=== PATIENT | female | born 1970 | race Asian ===

== ENCOUNTER 2016-04-28 09:58 | Emergency (ER) | payer OTHER ==
[~2016-04-28] VITALS: Ht 154.9 cm; Wt 59.2 kg
[~2016-04-28 09:58] MED LIST: ADVAIR 250/501 DISK IH; ADVIL,NUPRIN,M200 MG PO; ADVIL200 MG PO; ATIVAN0.5 MG PO; CIPRO500 MG PO; FLOMAX0.4 MG PO; FLUCONAZOLE150 MG PO; HYDROCODON-ACE1 EAC7 PO; PEN-VEE K,VEET500 MG PO; PERCOCET 5/31 TABLET PO; POTASSIUM CHLO20 MEQ PO; SULFAMETHOXAZO1 EAC4 PO; TAMSULOSIN HCL0.4 MG PO; TYLENOL REGULA325 MG PO
[2016-04-28 11:01] LABS: ADD MIUA? YES; BILIRUBIN NEGATIVE; BLOOD MODERATE; COLOR LT YELLOW ((YELLOW)); GLUCOSE (STRIP) NEGATIVE; KETONES NEGATIVE; LEUKOCYTES LARGE; NITRITE NEGATIVE; PROTEIN (STRIP) TRACE; SPECIFIC GRAVITY 1.017 (1.000-1.030); UROBILINOGEN 0.2 MG/DL (0.2-1.0)
[2016-04-28 11:03] LABS: HEMATOCRIT 39.6 % (36.0-46.0); MCH 30.6 PG (29.0-34.0); MCHC 33.8 G/DL (30.0-36.0); MCV 90.4 FL (83-99); PLATELET COUNT 360 K/uL (156-360); RBC DIS.WIDTH-CV 12.6 % (11.8-14.6); RBC DIS.WIDTH-SD 40.9 % (39-53); RED BLOOD COUNT 4.38 M/uL (3.80-5.20)
[2016-04-28 11:10] LABS: CHLORIDE 106 mEq/L (99-109); POTASSIUM 3.5 mEq/L (3.7-5.4); SODIUM 141 mEq/L (136-147)
[2016-04-28 11:13] LABS: GLUCOSE 99 mg/dL (70-99)
[2016-04-28 11:14] LABS: ANION GAP 9 MEQ/L (2-14); TOTAL BILIRUBIN 0.8 mg/dL (0.0-1.0)
[2016-04-28 11:15] LABS: EPITHELIAL CELLS 1+; MUCUS NONE SEEN; WHITE BLOOD CELLS TNTC /HPF (0-5)
[2016-04-28 11:16] LABS: ALKALINE PHOSPHATASE 56 IU/L (3-129); GFR ESTIMATE (CALCULATED) > 59 mL/min/
[2016-04-28 11:16] LABS: BACTERIA 1+; CASTS NONE SEEN /LPF; CRYSTALS NONE SEEN; UCUL ADDED? YES
[2016-04-28 11:17] LABS: UREA NITROGEN (BUN) 17 mg/dL (9-23)
[2016-04-28 11:20] LABS: LIPASE 21 U/L (1.0-51.0)
[2016-04-28 11:26] LABS: QUANTITATIVE HCG < 4.0 MIU/ML
[2016-04-28] MEDS ORDERED: LORTAB 5-325 M1 EACH PO (13:15)
[2016-04-28] MEDS ORDERED: KEFLEX500 MG PO (13:17)
[2016-04-28 13:41] VITALS: BP 118/74
[2016-05-01] MEDS ORDERED: FLOMAX0.4 MG PO (17:06)
[2016-05-01] MEDS ORDERED: KEFLEX250 MG PO (17:07)
== END 2016-04-28 13:43 | disposition home or self-care (01) ==
LOC: EME 09:58
DX: N39.0 Urinary tract infection, site not specified (principal); N13.2 Hydronephrosis with renal and ureteral calculous obstruction; Z87.442 Personal history of urinary calculi; I10 Essential (primary) hypertension
CPT/HCPCS: 74020; 76770; 80053; 81003; 83690; 84702; 85027; 87077; 87086; 87186; 99281; 99283; J1885

== ENCOUNTER → 2016-05-01 | Outpatient (CLI) | payer OTHER ==
[~2016-05-01] MED LIST changes: +CEPHALEXIN500 MG PO; +KEFLEX250 MG PO; +KEFLEX500 MG PO; +LORTAB 5-325 M1 EACH PO
== END | disposition home or self-care (01) ==
LOC: RAD 12:13
DX: N20.1 Calculus of ureter (principal)
CPT/HCPCS: 74000

== ENCOUNTER 2016-05-04 10:03 | Day surgery (SDC) | payer OTHER ==
[~2016-05-04] VITALS: Ht 154.9 cm; Wt 57.1 kg
[~2016-05-04 10:03] MED LIST changes: -CEPHALEXIN500 MG PO
[2016-05-04] MEDS ORDERED: CEPHALEXIN500 MG PO (10:44)
[2016-05-04 10:52] VITALS: BP 131/84
[2016-05-04 14:30] VITALS: BP 130/80
[2016-05-04 15:25] VITALS: BP 126/76
== END 2016-05-04 15:47 | disposition home or self-care (01) ==
LOC: SDC 10:03
PROVIDERS: Urology
DX: N20.0 Calculus of kidney (principal); Z87.442 Personal history of urinary calculi; I10 Essential (primary) hypertension
CPT/HCPCS: 74000; 76000; 82365 90; C1769; J0690; J1100; J1885; J2405; J3010

== ENCOUNTER → 2016-05-25 | Outpatient (CLI) | payer OTHER ==
[~2016-05-25] MED LIST changes: +CEPHALEXIN500 MG PO
== END | disposition home or self-care (01) ==
LOC: RAD 08:23
DX: N20.1 Calculus of ureter (principal); N20.0 Calculus of kidney; Z98.890 Other specified postprocedural states
CPT/HCPCS: 74000

== ENCOUNTER → 2017-04-26 | Outpatient (CLI) | payer OTHER ==
[~2017-04-26] VITALS: Ht 152.4 cm; Wt 58.3 kg
[~2017-04-26] MED LIST changes: +PRILOSEC20 MG PO
== END | disposition home or self-care (01) ==
LOC: AMB 03-22 13:30
DX: K29.70 Gastritis, unspecified, without bleeding (principal); K21.9 Gastro-esophageal reflux disease without esophagitis; R73.09 Other abnormal glucose; Z82.49 Family history of ischemic heart disease and other diseases of the circulatory system; Z88.5 Allergy status to narcotic agent
CPT/HCPCS: 88305; 88342 TC; J2250; J3010

== ENCOUNTER 2017-10-30 14:26 | Inpatient (IN) | payer OTHER ==
[~2017-10-30] VITALS: Ht 160 cm; Wt 58.6 kg
[2017-10-30 15:13] LABS: HEMATOCRIT 42.2 % (36.0-46.0); HEMOGLOBIN 14.6 G/DL (11.9-15.5); MCH 31.1 PG (29.0-34.0); MCHC 34.6 G/DL (30.0-36.0); MCV 89.8 FL (83-99); PLATELET COUNT 314 K/uL (156-360); RBC DIS.WIDTH-CV 12.6 % (11.8-14.6); RBC DIS.WIDTH-SD 41.9 % (39-53); WHITE BLOOD COUNT 17.4 K/uL (4.1-10.2)
[2017-10-30 15:13] LABS: APPEARANCE CLOUDY ((CLEAR)); BILIRUBIN NEGATIVE; BLOOD MODERATE; COLOR YELLOW ((YELLOW)); GLUCOSE (STRIP) NEGATIVE; KETONES NEGATIVE; LEUKOCYTES LARGE; NITRITE POSITIVE; PROTEIN (STRIP) 30; SPECIFIC GRAVITY 1.015 (1.000-1.030); UROBILINOGEN 0.2 MG/DL (0.2-1.0)
[2017-10-30 15:29] LABS: CHLORIDE 100 mEq/L (99-109); POTASSIUM 2.9 mEq/L (3.7-5.4); SODIUM 136 mEq/L (136-147)
[2017-10-30 15:31] LABS: GLUCOSE 172 mg/dL (70-99)
[2017-10-30 15:35] LABS: CREATININE 1.2 mg/dL (0.6-1.3); GFR ESTIMATE (CALCULATED) 51 mL/min/; UREA NITROGEN (BUN) 19 mg/dL (9-23)
[2017-10-30 16:08] LABS: BACTERIA 3+ /HPF; EPITHELIAL CELLS 1+ /HPF; MUCUS NONE SEEN /LPF; RED BLOOD CELLS 0-5 /HPF (0-5); UCUL ADDED? YES; WHITE BLOOD CELLS TNTC /HPF (0-5)
[2017-10-30 18:41] LABS: TROP-I INTERPRETATION NEGATIVE; TROPONIN-I < 0.01 ng/mL (0.0-0.30)
[2017-10-30] MEDS ORDERED: TYLENOL EXTRA500 MG PO (20:27)
[2017-10-30] MEDS ORDERED: ADVIL200 MG PO (20:29)
[2017-10-30] MEDS ORDERED: [UNRECOGNIZED DRUG - CODE] PO (20:35)
[2017-10-30 22:19] VITALS: BP 133/88
[2017-10-31 03:50] VITALS: BP 111/71
[2017-10-31 05:31] LABS: HEMATOCRIT 38.2 % (36.0-46.0); HEMOGLOBIN 12.9 G/DL (11.9-15.5); MCH 30.8 PG (29.0-34.0); MCHC 33.8 G/DL (30.0-36.0); MCV 91.2 FL (83-99); PLATELET COUNT 276 K/uL (156-360); RBC DIS.WIDTH-SD 43.3 % (39-53); RED BLOOD COUNT 4.19 M/uL (3.80-5.20); WHITE BLOOD COUNT 14.2 K/uL (4.1-10.2)
[2017-10-31 05:57] LABS: CHLORIDE 105 MEQ/L (99-109); GFR ESTIMATE (CALCULATED) > 59 mL/min/; POTASSIUM 3.2 MEQ/L (3.7-5.4); SODIUM 140 MEQ/L (136-147); UREA NITROGEN (BUN) 14 mg/dL (9-23)
[2017-10-31 06:17] LABS: GLUCOSE 113 mg/dL (70-99)
[2017-10-31 07:37] VITALS: BP 143/79
[2017-10-31 11:43] VITALS: BP 135/85
[2017-10-31 15:43] VITALS: BP 136/82
[2017-10-31 20:15] VITALS: BP 107/66
[2017-11-01 00:22] VITALS: BP 108/69
[2017-11-01 04:00] VITALS: BP 121/74
[2017-11-01 05:32] LABS: BASOPHIL (%) 0.4 % (0-1); EOSINOPHIL (%) 1.3 % (0-5); EOSINOPHIL COUNT 0.1 K/uL (0-0.3); HEMATOCRIT 34.2 % (36.0-46.0); HEMOGLOBIN 11.3 G/DL (11.9-15.5); IMMATURE GRANULOCYTE (%) 0.3 % (0.0-0.7); LYMPHOCYTE (%) 18.5 % (15-42); LYMPHOCYTE COUNT 1.8 K/uL (1.0-2.8); MCH 30.7 PG (29.0-34.0); MCV 92.9 FL (83-99); MONOCYTE (%) 13.1 % (3-12); MONOCYTE COUNT 1.3 K/uL (0-0.8); NEUTROPHIL (%) 66.4 % (45-76); NEUTROPHIL COUNT 6.3 K/uL (1.8-6.4); PLATELET COUNT 267 K/uL (156-360); RBC DIS.WIDTH-CV 12.9 % (11.8-14.6); RBC DIS.WIDTH-SD 44.4 % (39-53); RED BLOOD COUNT 3.68 M/uL (3.80-5.20); WHITE BLOOD COUNT 9.5 K/uL (4.1-10.2)
[2017-11-01 06:01] LABS: CHLORIDE 110 MEQ/L (99-109); GFR ESTIMATE (CALCULATED) > 59 mL/min/; GLUCOSE 122 mg/dL (70-99); MAGNESIUM 1.9 mg/dl (1.3-2.7); POTASSIUM 3.5 MEQ/L (3.7-5.4); SODIUM 144 MEQ/L (136-147); UREA NITROGEN (BUN) 14 mg/dL (9-23)
[2017-11-01 07:38] VITALS: BP 136/76
[2017-11-01 12:04] VITALS: BP 150/92
[2017-11-01 12:23] LABS: HEMOGLOBIN A1c (GLYCOHEMOGLOB) 6.1 % (Below 5.7)
[2017-11-01 19:39] VITALS: BP 158/92
[2017-11-01 23:38] VITALS: BP 163/91
[2017-11-02 04:09] VITALS: BP 140/90
[2017-11-02 06:08] LABS: BASOPHIL (%) 0.5 % (0-1); EOSINOPHIL (%) 2.5 % (0-5); EOSINOPHIL COUNT 0.2 K/uL (0-0.3); HEMATOCRIT 38.4 % (36.0-46.0); HEMOGLOBIN 12.8 G/DL (11.9-15.5); IMMATURE GRANULOCYTE (%) 0.4 % (0.0-0.7); LYMPHOCYTE COUNT 2.1 K/uL (1.0-2.8); MCH 30.5 PG (29.0-34.0); MCHC 33.3 G/DL (30.0-36.0); MCV 91.4 FL (83-99); MONOCYTE (%) 13.3 % (3-12); MONOCYTE COUNT 1.1 K/uL (0-0.8); NEUTROPHIL (%) 57.3 % (45-76); NEUTROPHIL COUNT 4.6 K/uL (1.8-6.4); PLATELET COUNT 340 K/uL (156-360); RBC DIS.WIDTH-CV 12.6 % (11.8-14.6); RBC DIS.WIDTH-SD 42.5 % (39-53)
[2017-11-02 06:28] LABS: CHLORIDE 104 MEQ/L (99-109); GFR ESTIMATE (CALCULATED) > 59 mL/min/; GLUCOSE 96 mg/dL (70-99); POTASSIUM 3.3 MEQ/L (3.7-5.4); SODIUM 143 MEQ/L (136-147); UREA NITROGEN (BUN) 13 mg/dL (9-23)
[2017-11-02 07:15] VITALS: BP 141/92
[2017-11-02] MEDS ORDERED: TAMSULOSIN HCL0.4 MG PO (11:02)
[2017-11-02] MEDS ORDERED: DITROPAN5 MG PO (11:02)
[2017-11-02] MEDS ORDERED: CIPRO500 MG PO (11:08)
[2017-11-02 12:07] VITALS: BP 147/82
== END 2017-11-02 14:32 | disposition home or self-care (01) | DRG 872 ==
LOC: RME 14:26 → EME 14:26 → 5SOUTH 20:24 → EDOF 20:24 → CANRESERV 20:25 → ENRESERV 20:25 → 5SOUTH 21:53
PROVIDERS: Hospitalist; Physician Assistant
PROC: 0T788DZ Dilation of Bilateral Ureters with Intraluminal Device, Via Natural or Artificial Opening Endoscopic (ICD-10-PCS; principal; 2017-10-31)
PROC: BT141ZZ Fluoroscopy of Kidneys, Ureters and Bladder using Low Osmolar Contrast (ICD-10-PCS; principal; 2017-10-31)
DX: A41.50 Gram-negative sepsis, unspecified (principal); N13.6 Pyonephrosis; B96.1 Klebsiella pneumoniae [K. pneumoniae] as the cause of diseases classified elsewhere; E87.6 Hypokalemia; I10 Essential (primary) hypertension; K21.9 Gastro-esophageal reflux disease without esophagitis; J30.2 Other seasonal allergic rhinitis
CPT/HCPCS: 74177; 74420; 80048; 81003; 83036; 83605; 83735; 84484; 85025; 85027; 87040; 87077; 87086; 87186; 87801; 93005; 99281; 99284; C2625; J0696; J1644; J1885; J2250; J2405; J2543; J3010; J3480; J7030; J7050; J7120

== ENCOUNTER → 2017-11-17 | Outpatient (CLI) | payer SELFPAY ==
[~2017-11-17] MED LIST changes: +DITROPAN5 MG PO; +TYLENOL EXTRA500 MG PO; +[UNRECOGNIZED DRUG - CODE] PO
== END | disposition home or self-care (01) ==
LOC: RAD 15:32
DX: N20.0 Calculus of kidney (principal); Z96.0 Presence of urogenital implants
CPT/HCPCS: 74018

== ENCOUNTER 2017-12-06 10:11 | Emergency (ER) | payer SELFPAY ==
[~2017-12-06] VITALS: Ht 149.9 cm; Wt 58.7 kg
[2017-12-06 13:09] VITALS: BP 151/89
== END 2017-12-06 13:10 | disposition home or self-care (01) ==
LOC: EME 10:11
DX: Z00.00 Encounter for general adult medical examination without abnormal findings (principal); Z96.0 Presence of urogenital implants; I10 Essential (primary) hypertension; Z87.442 Personal history of urinary calculi; Z90.49 Acquired absence of other specified parts of digestive tract; Z88.5 Allergy status to narcotic agent
CPT/HCPCS: 99281; 99284

== ENCOUNTER 2017-12-13 18:52 | Inpatient (IN) | payer OTHER ==
[~2017-12-13] VITALS: Ht 149.9 cm; Wt 61.4 kg
[2017-12-13 19:16] LABS: APPEARANCE SL.HAZY ((CLEAR)); BILIRUBIN NEGATIVE; BLOOD LARGE; COLOR YELLOW ((YELLOW)); GLUCOSE (STRIP) 50; KETONES NEGATIVE; LEUKOCYTES LARGE; NITRITE POSITIVE; PROTEIN (STRIP) 100; SPECIFIC GRAVITY 1.008 (1.000-1.030); UROBILINOGEN 0.2 MG/DL (0.2-1.0)
[2017-12-13 19:22] LABS: HEMOGLOBIN 13.2 G/DL (11.9-15.5); MCH 31.4 PG (29.0-34.0); MCHC 34.7 G/DL (30.0-36.0); MCV 90.3 FL (83-99); PLATELET COUNT 321 K/uL (156-360); RBC DIS.WIDTH-CV 12.6 % (11.8-14.6); RBC DIS.WIDTH-SD 41.9 % (39-53); RED BLOOD COUNT 4.21 M/uL (3.80-5.20); WHITE BLOOD COUNT 12.3 K/uL (4.1-10.2)
[2017-12-13 19:39] LABS: BACTERIA 1+ /HPF; EPITHELIAL CELLS 1+ /HPF; MUCUS NONE SEEN /LPF
[2017-12-13 19:40] LABS: WHITE BLOOD CELLS 30-40 /HPF (0-5)
[2017-12-13 19:41] LABS: ALBUMIN 3.9 g/dL (3.2-4.8); CHLORIDE 101 mEq/L (99-109); POTASSIUM 2.6 mEq/L (3.7-5.4); SODIUM 137 mEq/L (136-147)
[2017-12-13 19:41] LABS: RED BLOOD CELLS 40-50 /HPF (0-5); UCUL ADDED? YES
[2017-12-13 19:44] LABS: GLUCOSE 235 mg/dL (70-99); TOTAL PROTEIN 7.2 g/dL (6.4-8.3)
[2017-12-13 19:46] LABS: TOTAL BILIRUBIN 0.7 mg/dL (0.0-1.0)
[2017-12-13 19:47] LABS: ALKALINE PHOSPHATASE 68 IU/L (3-129)
[2017-12-13 19:48] LABS: CREATININE 1.2 mg/dL (0.6-1.3); GFR ESTIMATE (CALCULATED) 51 mL/min/
[2017-12-13 19:49] LABS: AST (GOT) 17 IU/L (2-34); UREA NITROGEN (BUN) 15 mg/dL (9-23)
[2017-12-13 19:50] LABS: ALT (GPT) 21 IU/L (3-49)
[2017-12-13 19:56] LABS: QUANTITATIVE HCG < 4.0 MIU/ML
[2017-12-13 20:54] LABS: LIPASE 19 U/L (1.0-51.0)
[2017-12-13 23:02] LABS: CHLORIDE 109 mEq/L (99-109); POTASSIUM 3.1 mEq/L (3.7-5.4); SODIUM 142 mEq/L (136-147)
[2017-12-13 23:04] LABS: GLUCOSE 166 mg/dL (70-99)
[2017-12-13 23:07] LABS: GFR ESTIMATE (CALCULATED) > 59 mL/min/
[2017-12-13 23:08] LABS: UREA NITROGEN (BUN) 14 mg/dL (9-23)
[2017-12-14 01:34] VITALS: BP 141/99
[2017-12-14 03:41] VITALS: BP 129/72
[2017-12-14 06:36] LABS: BASOPHIL (%) 0.2 % (0-1); EOSINOPHIL (%) 0.6 % (0-5); EOSINOPHIL COUNT 0.1 K/uL (0-0.3); HEMATOCRIT 37.4 % (36.0-46.0); IMMATURE GRANULOCYTE (%) 0.3 % (0.0-0.7); LYMPHOCYTE (%) 10.6 % (15-42); LYMPHOCYTE COUNT 1.3 K/uL (1.0-2.8); MCH 31.7 PG (29.0-34.0); MCHC 34.8 G/DL (30.0-36.0); MCV 91.2 FL (83-99); MONOCYTE (%) 13.6 % (3-12); MONOCYTE COUNT 1.7 K/uL (0-0.8); NEUTROPHIL (%) 74.7 % (45-76); NEUTROPHIL COUNT 9.1 K/uL (1.8-6.4); PLATELET COUNT 342 K/uL (156-360); RBC DIS.WIDTH-CV 12.6 % (11.8-14.6); RBC DIS.WIDTH-SD 42.4 % (39-53); WHITE BLOOD COUNT 12.1 K/uL (4.1-10.2)
[2017-12-14 07:03] LABS: CHLORIDE 108 MEQ/L (99-109); CREATININE 0.9 MG/DL (0.6-1.3); GFR ESTIMATE (CALCULATED) > 59 mL/min/; GLUCOSE 132 mg/dL (70-99); POTASSIUM 3.6 MEQ/L (3.7-5.4); SODIUM 142 MEQ/L (136-147); UREA NITROGEN (BUN) 15 mg/dL (9-23)
[2017-12-14 08:39] VITALS: BP 128/85
[2017-12-14 11:28] VITALS: BP 141/94
[2017-12-14 16:33] VITALS: BP 158/110
[2017-12-14 19:00] VITALS: BP 149/99
[2017-12-15 00:20] VITALS: BP 131/90
[2017-12-15 06:01] LABS: BASOPHIL (%) 0.5 % (0-1); EOSINOPHIL (%) 1.6 % (0-5); EOSINOPHIL COUNT 0.1 K/uL (0-0.3); HEMATOCRIT 37.7 % (36.0-46.0); HEMOGLOBIN 12.7 G/DL (11.9-15.5); IMMATURE GRANULOCYTE (%) 0.1 % (0.0-0.7); LYMPHOCYTE COUNT 2.4 K/uL (1.0-2.8); MCH 30.7 PG (29.0-34.0); MCHC 33.7 G/DL (30.0-36.0); MCV 91.1 FL (83-99); MONOCYTE (%) 16.9 % (3-12); MONOCYTE COUNT 1.3 K/uL (0-0.8); NEUTROPHIL (%) 50.9 % (45-76); PLATELET COUNT 353 K/uL (156-360); RBC DIS.WIDTH-CV 12.4 % (11.8-14.6); RBC DIS.WIDTH-SD 41.7 % (39-53); RED BLOOD COUNT 4.14 M/uL (3.80-5.20); WHITE BLOOD COUNT 7.9 K/uL (4.1-10.2)
[2017-12-15 06:25] LABS: CHLORIDE 106 MEQ/L (99-109); GFR ESTIMATE (CALCULATED) > 59 mL/min/; GLUCOSE 124 mg/dL (70-99); POTASSIUM 3.7 MEQ/L (3.7-5.4); SODIUM 142 MEQ/L (136-147); UREA NITROGEN (BUN) 16 mg/dL (9-23)
[2017-12-15 07:35] VITALS: BP 126/68
[2017-12-15 16:22] VITALS: BP 142/92
[2017-12-15 23:18] VITALS: BP 160/78
[2017-12-16 07:30] VITALS: BP 132/84
[2017-12-16] MEDS ORDERED: BACTRIM,SEPT1 TABLET PO ×2 (10:54→10:55)
[2017-12-16 12:15] VITALS: BP 157/98
== END 2017-12-16 13:15 | disposition home or self-care (01) | DRG 872 ==
LOC: EME 18:52 → 2EAST 12-14 00:19 → EDOF 12-14 00:19 → ENRESERV 12-14 00:23 → 2EAST 12-14 01:20
PROVIDERS: Hospitalist; Internal Medicine; Physician Assistant
DX: A41.9 Sepsis, unspecified organism (principal); N13.6 Pyonephrosis; E87.6 Hypokalemia; I10 Essential (primary) hypertension; R73.03 Prediabetes; N26.1 Atrophy of kidney (terminal); Z98.890 Other specified postprocedural states
CPT/HCPCS: 74176; 80048; 80048 91; 80053; 81003; 82948; 83605; 83690; 84702; 85025; 85027; 87040; 87077; 87086; 93005; 99281; 99285; J0696; J1644; J2543; J3370; J3480; J7030